=== PATIENT | female | born 1960 | race Caucasian/White ===

== ENCOUNTER 2021-08-28 17:20 | Emergency (ER) | payer OTHER ==
[2021-08-28 22:18] LABS: HEMOGLOBIN 11.3 gm/dl (12.3-15.3); RED BLOOD COUNT 4.22 M/UL (4.00-5.10); WHITE BLOOD COUNT 9.4 K/UL (4.5-11.0)
[2021-08-28 22:37] LABS: BUN/CREATININE RATIO 37 (0-10)
[2021-08-29] MEDS ORDERED: MACROBID 100 M100 M1 PO (07:02)
== END 2021-08-29 14:45 | disposition home or self-care (01) ==
LOC: ER1 17:20
PROVIDERS: Physician Assistant
DX: M06.9 Rheumatoid arthritis, unspecified (principal); N39.0 Urinary tract infection, site not specified; E11.9 Type 2 diabetes mellitus without complications; K21.9 Gastro-esophageal reflux disease without esophagitis; D64.9 Anemia, unspecified; I10 Essential (primary) hypertension
CPT/HCPCS: 70450; 80053; 80307; 81001; 84439; 84443; 85025; 87086; 96374; 99285; G0480; J1885

== ENCOUNTER 2021-09-02 19:51 | Inpatient (IN) | payer OTHER ==
[~2021-09-02] VITALS: Ht 152.4 cm; Wt 45.4 kg
[~2021-09-02 19:51] MED LIST: MACROBID 100 M100 M1 PO
[2021-09-02 22:40] LABS: BUN/CREATININE RATIO 45 (0-10)
[2021-09-02 23:16] LABS: HEMOGLOBIN 10.9 gm/dl (12.3-15.3); RED BLOOD COUNT 4.07 M/UL (4.00-5.10); WHITE BLOOD COUNT 12.3 K/UL (4.5-11.0)
[2021-09-03] MEDS ORDERED: ELIQUIS5 MG PO (01:58)
[2021-09-03] MEDS ORDERED: OMNICEF 300 MG300 MG PO (01:58)
[2021-09-03 07:00] LABS: BUN/CREATININE RATIO 51 (0-10)
[2021-09-03] MEDS ORDERED: PROTONIX 40 MG40 M1 PO (10:47)
[2021-09-03] MEDS ORDERED: AMARYL 2MG TABLE2 MG PO (10:48)
[2021-09-03] MEDS ORDERED: LASIX 40 MG TAB40 MG PO (10:50)
[2021-09-04 03:35] LABS: BUN/CREATININE RATIO 38 (0-10)
[2021-09-04 03:58] LABS: HEMOGLOBIN 8.6 gm/dl (12.3-15.3); RED BLOOD COUNT 3.24 M/UL (4.00-5.10); WHITE BLOOD COUNT 8.7 K/UL (4.5-11.0)
[2021-09-05 03:42] LABS: WHITE BLOOD COUNT 8.9 K/UL (4.5-11.0)
[2021-09-05 03:56] LABS: RED BLOOD COUNT 3.8 M/UL (4.00-5.10)
[2021-09-05 04:18] LABS: BUN/CREATININE RATIO 28 (0-10)
[2021-09-10 05:01] LABS: BUN/CREATININE RATIO 27 (0-10)
[2021-09-14] MEDS ORDERED: CARVEDILOL3.125 MG PO (11:22)
[2021-09-14] MEDS ORDERED: FUROSEMIDE40 MG PO (11:22)
[2021-09-14] MEDS ORDERED: AMARYL 2MG TABLE2 MG PO (11:22)
[2021-09-14] MEDS ORDERED: PROTONIX 40 MG40 M1 PO ×2 (11:22→11:27)
[2021-09-14] MEDS ORDERED: LISINOPRIL10 MG PO (11:22)
== END 2021-09-14 18:19 | disposition home or self-care (01) | DRG 689 ==
LOC: ER1 19:51 → MED SURG 4 09-03 03:48 → CDU 09-03 03:48 → MED SURG 4 09-03 07:35
PROVIDERS: Internal Medicine; Internal Medicine Infectious Disease; Physician Assistant; ADMIT Internal Medicine
DX: N30.00 Acute cystitis without hematuria (principal); U07.1 COVID-19; L97.221 Non-pressure chronic ulcer of left calf limited to breakdown of skin; Z16.12 Extended spectrum beta lactamase (ESBL) resistance; I87.2 Venous insufficiency (chronic) (peripheral); Z86.718 Personal history of other venous thrombosis and embolism; E11.621 Type 2 diabetes mellitus with foot ulcer; M06.9 Rheumatoid arthritis, unspecified; I11.0 Hypertensive heart disease with heart failure; E11.65 Type 2 diabetes mellitus with hyperglycemia; D50.9 Iron deficiency anemia, unspecified; I50.9 Heart failure, unspecified; Z96.653 Presence of artificial knee joint, bilateral; B96.20 Unspecified Escherichia coli [E. coli] as the cause of diseases classified elsewhere; Z96.649 Presence of unspecified artificial hip joint; Z79.01 Long term (current) use of anticoagulants; Z82.49 Family history of ischemic heart disease and other diseases of the circulatory system; Z87.440 Personal history of urinary (tract) infections; Z59.00 Homelessness unspecified; Z98.890 Other specified postprocedural states; Z79.899 Other long term (current) drug therapy
CPT/HCPCS: 36415; 71045; 80048; 80053; 80202; 81001; 82550; 82553; 82962; 83036; 83690; 84484; 85025; 86140; 87077; 87086; 87186; 93005; 93970; 96374; 96375; 96376; 97110; 97116; 97116-GP-CQ; 97161; 97166; 99285; G0378; J0696; J1335; J1885; J2405; J3370; J7030; J7050; J7070; J7121; Q9967; U0002

== ENCOUNTER 2022-01-06 10:27 | Observation (INO) | payer OTHER ==
[~2022-01-06] VITALS: Ht 154.9 cm; Wt 57.2 kg
[~2022-01-06 10:27] MED LIST changes: +AMARYL 2MG TABLE2 MG PO; +CARVEDILOL3.125 MG PO; +ELIQUIS5 MG PO; +FUROSEMIDE40 MG PO; +LASIX 40 MG TAB40 MG PO; +LISINOPRIL10 MG PO; +OMNICEF 300 MG300 MG PO; +PROTONIX 40 MG40 M1 PO
[2022-01-06 11:05] LABS: HEMOGLOBIN 11.8 gm/dl (12.3-15.3); RED BLOOD COUNT 4.61 M/UL (4.00-5.10); WHITE BLOOD COUNT 12.3 K/UL (4.5-11.0)
[2022-01-06 12:20] LABS: BUN/CREATININE RATIO 40 (0-10)
[2022-01-06] MEDS ORDERED: ELIQUIS5 MG PO (14:02)
[2022-01-06] MEDS ORDERED: ATORVASTATIN CA10 MG PO (14:02)
[2022-01-06] MEDS ORDERED: HYDRALAZINE HCL25 MG PO (14:03)
[2022-01-06] MEDS ORDERED: FUROSEMIDE40 MG PO (14:03)
[2022-01-06] MEDS ORDERED: BUPROPION HCL150 MG PO (14:03)
[2022-01-06] MEDS ORDERED: CARVEDILOL6.25 MG PO (14:03)
[2022-01-06] MEDS ORDERED: ESCITALOPRAM OX20 MG PO (14:03)
[2022-01-06] MEDS ORDERED: PROTONIX 40 MG40 M1 PO (14:04)
[2022-01-06] MEDS ORDERED: LISINOPRIL20 MG PO (14:04)
[2022-01-06] MEDS ORDERED: OZEMPIC0.25 MG/0. SQ (14:04)
[2022-01-06] MEDS ORDERED: LEVOTHYROXINE25 MCG PO (14:04)
[2022-01-06] MEDS ORDERED: HYDROCODON-ACE1 EAC4 PO (14:05)
[2022-01-06] MEDS ORDERED: METFORMIN HCL500 M2 PO (14:05)
[2022-01-07 03:09] LABS: HEMOGLOBIN 8.9 gm/dl (12.3-15.3); RED BLOOD COUNT 3.55 M/UL (4.00-5.10); WHITE BLOOD COUNT 7.4 K/UL (4.5-11.0)
[2022-01-07 03:32] LABS: BUN/CREATININE RATIO 29 (0-10)
--- NOTE | 2022-01-08 12:36 | NUR ---
PATIENT EDUCATED ON THE DISCHARGE PAPER WORK THAT IS PROVIDED TO HER. SHE VERBALIZES UNDERSTANDING AND STATES SHE IS READY TO GO HOME. PATIENT IS STABLE AND VITALS ARE WITHIN NORMAL LIMITS.
== END 2022-01-08 13:48 | disposition home or self-care (01) ==
LOC: ER1 10:27 → PROG CARE 13:21 → M/S 13:21 → CDU 13:21 → PROG CARE 13:21 → M/S 01-07 14:25
PROVIDERS: Emergency Medicine; Physician Assistant Medical; ADMIT Internal Medicine
DX: E11.649 Type 2 diabetes mellitus with hypoglycemia without coma (principal); I10 Essential (primary) hypertension; E87.6 Hypokalemia; E83.42 Hypomagnesemia; T68.XXXA Hypothermia, initial encounter; M06.9 Rheumatoid arthritis, unspecified; D50.9 Iron deficiency anemia, unspecified; E03.9 Hypothyroidism, unspecified; E78.5 Hyperlipidemia, unspecified; Z20.822 Contact with and (suspected) exposure to COVID-19; Z86.718 Personal history of other venous thrombosis and embolism; Z79.01 Long term (current) use of anticoagulants; Z82.49 Family history of ischemic heart disease and other diseases of the circulatory system
CPT/HCPCS: 0240U; 70450; 71045; 80048; 80053; 81001; 82550; 82553; 82962; 83036; 83605; 83735; 84484; 85025; 85027; 87040; 87086; 93005; 96374; 96375; 96376; 99285; G0378; J0696; J3475; U0002

== ENCOUNTER → 2022-02-05 | Outpatient (CLI) | payer OTHER ==
[~2022-02-05] MED LIST changes: +ATORVASTATIN CA10 MG PO; +BUPROPION HCL150 MG PO; +CARVEDILOL6.25 MG PO; +ESCITALOPRAM OX20 MG PO; +HYDRALAZINE HCL25 MG PO; +HYDROCODON-ACE1 EAC4 PO; +LEVOTHYROXINE25 MCG PO; +LISINOPRIL20 MG PO; +METFORMIN HCL500 M2 PO; +OZEMPIC0.25 MG/0. SQ
== END | disposition home or self-care (01) ==
LOC: WCC 07:36
DX: E11.621 Type 2 diabetes mellitus with foot ulcer (principal); L97.522 Non-pressure chronic ulcer of other part of left foot with fat layer exposed; L97.512 Non-pressure chronic ulcer of other part of right foot with fat layer exposed; S81.801A Unspecified open wound, right lower leg, initial encounter; I11.0 Hypertensive heart disease with heart failure; I50.9 Heart failure, unspecified; D50.9 Iron deficiency anemia, unspecified; Z86.718 Personal history of other venous thrombosis and embolism